=== PATIENT | male | born 1990 | race Caucasian/White ===

== ENCOUNTER 2023-11-03 22:28 | Emergency (ER) | payer BC ==
[2023-11-03] MEDS ORDERED: Ibuprofen 200 MG TAB ONE (22:57)
== END 2023-11-04 00:15 | disposition home or self-care (01) ==
LOC: NAV ERS 22:28
DX: S83.92XA Sprain of unspecified site of left knee, initial encounter (principal); W01.10XA Fall on same level from slipping, tripping and stumbling with subsequent striking against unspecified object, initial encounter

== ENCOUNTER 2025-07-11 17:51 | Emergency (ER) | payer OTHER, BC ==
[2025-07-11] MEDS ORDERED: Orphenadrine Citrate 60 MG/2 ML VIAL ONE (19:40)
== END 2025-07-11 20:30 | disposition home or self-care (01) ==
LOC: NAV ERS 17:51
DX: S13.4XXA Sprain of ligaments of cervical spine, initial encounter (principal); S50.12XA Contusion of left forearm, initial encounter; S80.01XA Contusion of right knee, initial encounter; V89.2XXA Person injured in unspecified motor-vehicle accident, traffic, initial encounter
CPT/HCPCS: 70450; 72125; 96372; J1885; J2360